=== PATIENT | female | born 1935 | race Caucasian/White ===

== ENCOUNTER → 2021-11-15 | Outpatient (CLI) | payer MEDICARE, OTHER ==
[~2021-11-15] MED LIST: ASPIRIN EC325 MG PO; CELEBREX200 MG PO; COREG 25MG TAB25 MG PO; DILTIAZEM 24HR180 MG PO; DILTIAZEM ER360 M1 PO; GLUCOPHAGE1000 MG PO; HYDRALAZINE HCL50 MG PO; HYDROCHLOROTHIA25 MG PO; LEXAPRO TAB 1010 MG PO; LEXAPRO20 MG PO; LIPITOR TAB 2020 MG PO; NIACIN ER1000 MG PO; TYLENOL 325MG325 MG PO; VITAMIN D250000 UNIT PO
== END ==
LOC: ECHO 08:30
DX: I35.8 Other nonrheumatic aortic valve disorders (principal); I70.0 Atherosclerosis of aorta; I07.1 Rheumatic tricuspid insufficiency
CPT/HCPCS: ECHO; 93306

== ENCOUNTER → 2021-12-13 | Day surgery (SDC) | payer MEDICARE, OTHER ==
[~2021-12-13] MED LIST changes: +CARVEDILOL25 MG PO; +FUROSEMIDE20 MG PO; +LACTULOSE10 GM/152 PO; +PROLIA INJ60 MG/1 ML SC
== END | disposition home or self-care (01) ==
LOC: OR 05:50
PROVIDERS: Surgery
PROC: 0DJ08ZZ Inspection of Upper Intestinal Tract, Via Natural or Artificial Opening Endoscopic (ICD-10-PCS; principal; 2021-12-13 07:30)
PROC: 0DBH8ZX Excision of Cecum, Via Natural or Artificial Opening Endoscopic, Diagnostic (ICD-10-PCS; 2021-12-13 07:30)
DX: C18.0 Malignant neoplasm of cecum (principal); K57.30 Diverticulosis of large intestine without perforation or abscess without bleeding; K29.70 Gastritis, unspecified, without bleeding; D50.0 Iron deficiency anemia secondary to blood loss (chronic); I12.9 Hypertensive chronic kidney disease with stage 1 through stage 4 chronic kidney disease, or unspecified chronic kidney disease; E11.22 Type 2 diabetes mellitus with diabetic chronic kidney disease; N18.2 Chronic kidney disease, stage 2 (mild); E55.9 Vitamin D deficiency, unspecified; E11.40 Type 2 diabetes mellitus with diabetic neuropathy, unspecified; E78.5 Hyperlipidemia, unspecified; Z79.82 Long term (current) use of aspirin; Z79.1 Long term (current) use of non-steroidal anti-inflammatories (NSAID); Z79.84 Long term (current) use of oral hypoglycemic drugs; Z79.899 Other long term (current) drug therapy; Z20.822 Contact with and (suspected) exposure to COVID-19
CPT/HCPCS: 82962; J2704; J7030

== ENCOUNTER → 2021-12-23 | Outpatient (CLI) | payer MEDICARE, OTHER | LOC: CT 15:00 | DX: K63.89 Other specified diseases of intestine (principal) | CPT/HCPCS: 36415; 82565; 84520; Q9967 ==

== ENCOUNTER → 2021-12-25 | Outpatient (CLI) | payer MEDICARE, OTHER | LOC: CT 10:32 | DX: K63.89 Other specified diseases of intestine (principal); R91.8 Other nonspecific abnormal finding of lung field; R59.0 Localized enlarged lymph nodes; K22.89 Other specified disease of esophagus; C78.6 Secondary malignant neoplasm of retroperitoneum and peritoneum; K57.30 Diverticulosis of large intestine without perforation or abscess without bleeding; R18.8 Other ascites; Z90.11 Acquired absence of right breast and nipple; Z90.710 Acquired absence of both cervix and uterus | CPT/HCPCS: 71260; Q9967 ==